=== PATIENT | female | born 1995 | race African-American/Black ===

== ENCOUNTER 2017-07-07 23:45 | Emergency (ER) | payer SELFPAY ==
[~2017-07-07] VITALS: Ht 152.4 cm; Wt 55.0 kg
[2017-07-08 00:15] VITALS: BP 116/45
[2017-07-08] MEDS ORDERED: DEXAMETHASONE 10 MG/ML VIAL IM SCH (00:15)
[2017-07-08] MEDS ORDERED: PENICILLIN G BENZATHINE 1,200,000 UNITS/2ML SYR IM ONE (00:15)
[2017-07-08] MEDS ORDERED: KETOROLAC 60MG/2ML VIAL IM ONE (00:15)
[2017-07-08 01:53] LABS: HCG SCREEN NEGATIVE
== END 2017-07-08 02:00 | disposition home or self-care (01) ==
LOC: ER 23:45
DX: J02.9 Acute pharyngitis, unspecified (principal); R59.0 Localized enlarged lymph nodes; J45.909 Unspecified asthma, uncomplicated; Z88.3 Allergy status to other anti-infective agents; Z91.013 Allergy to seafood
CPT/HCPCS: 84703; 87070; 87430; 96372; 99284; J0561; J1100; J1885; Z7610